=== PATIENT | male | born 1985 | race African-American/Black ===

== ENCOUNTER 2024-07-15 11:41 | Emergency (ER) | payer OTHER ==
[2024-07-15] MEDS ORDERED: LORazepam 2 MG/ML VIAL ONE (12:42)
[2024-07-15] MEDS ORDERED: NA CHLORIDE 0.9% 1,000 ML ONE (12:42)
[2024-07-15 12:46] LABS: Absolute Basophils 0.1 K/uL (0-0.5); Absolute Monocytes 0.5 K/uL (0.1-1.3); Absolute Neutrophil 9.1 K/uL (1.8-8.0); Basophils % 0.6 % (0-1.3); Hematocrit 39.6 % (39.6-49.0); Hemoglobin 13.5 g/dL (13.6-17.9); Lymphocytes % 9.1 % (15.3-44.8); MCH 30.4 pg (27.0-35.0); MCHC 34.1 g/dL (32.0-36.0); MCV 89.3 fL (80-100); MPV 7.1 fL (7.6-11.3); Monocytes % 4.6 % (3.3-12.3); Neutrophils % 85.7 % (41.7-73.7); Platelets 232 thou/uL (152-406); RBC Red Blood Cell Count 4.43 M/uL (4.33-5.43); Red Cell Distribution Width 14.1 % (12.1-15.2)
[2024-07-15 12:51] LABS: PT Prothrombin Time 12.9 SECONDS (9.4-12.5); Protime INR 1.16
[2024-07-15 13:05] LABS: ALT/SGPT 25 U/L (16-61); AST/SGOT 42 U/L (15-37); Albumin 3.9 g/dL (3.4-5.0); Albumin/Globulin Ratio 1.1 (1.1-1.8); Alkaline Phosphatase 64 U/L (45-117); Anion Gap 11.1 mEq/L (5.0-15.0); BUN Blood Urea Nitrogen 14 mg/dL (7-18); Bicarbonate 23 mEq/L (21-32); Bilirubin Direct 0.2 mg/dL (0-0.2); Bilirubin Indirect, Calculated 0.7 mg/dL (0.2-0.8); Bilirubin Total 0.9 mg/dL (0.2-1.0); Globulin 3.6 g/dL (2.3-3.5); Glomerular Filtration Rate 72 ml/min (=/>90); Glucose Level 86 mg/dL (74-106); Potassium 3.1 mEq/L (3.5-5.1); Protein, Total 7.5 g/dL (6.4-8.2); Sodium Level 139 mEq/L (136-145)
--- NOTE | 2024-07-15 13:55 | RAD REPORT ---
EXAM: Testicular/scrotal ultrasound HISTORY: indirect hernia right side/hydrocele COMPARISON: None TECHNIQUE: Multiplanar grayscale and color Doppler images were obtained in a testicular/scrotal ultra sound. Spectral analysis of the Doppler waveforms of the testicles were performed. FINDINGS: Right testicle: Normal in echogenicity. No focal mass. Normal internal flow. Left testicle: Normal in echogenicity. No focal mass. Normal internal flow. Right epididymis. No epididymal cyst. Normal internal flow. Left epididymis. No epididymal cyst. Normal internal flow. Large left-sided hydrocele is present. No varicocele is present. Right inguinal hernia. No bowel identified within the hernia. IMPRESSION: 1. Large left hydrocele. 2. Right-sided inguinal hernia. 3. Bilateral testicular blood flow.
[2024-07-15 14:16] LABS: Barbiturates NEGATIVE (NEGATIVE); Benzodiazepines NEGATIVE (NEGATIVE); Cocaine NEGATIVE (NEGATIVE); METHAMPHETAM POSITIVE (NEGATIVE); Methadone NEGATIVE (NEGATIVE); Opiates NEGATIVE (NEGATIVE); Phencyclidine NEGATIVE (NEGATIVE); THC Cannibis NEGATIVE (NEGATIVE)
--- NOTE | 2024-07-15 14:29 | EDPHYS ---
Physician Documentation [facility] Name: Daryl Cuello Age: 39 yrs Sex: Male : 1985 Arrival Date: 07/15/2024 Time: 11:41 Bed 4 Private MD: ISAIAH Physician Taras Pascal HPI: 07/15 13:27 This 39 yrs old Black Male presents to ER via Ambulatory with complaints of AMS, jr8 Testicular swelling. 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 He was brought in for possibility of increased swelling in his testicles. Has a history of hydrocele and indirect hernia on the right side. Also had concerned that patient was not acting appropriate. Has seen him in the past and normally is calm and lucid. Today speaking erratically and with odd behavior. Patient alert to person and place upon arrival. Denies any significant pain to the inguinal or testicular area but did say they are swollen. Patient appears to be diaphoretic and is talking sporadically. It is unknown whether or not the patient has had similar symptoms in the past. Historical: - Allergies: 12:18 No Known Allergies; me1 - PMHx: 12:18 hydrocele; me1 - Immunization history:: Adult Immunizations unknown. - Infectious Disease History:: Denies. - Social history:: Smoking status: Patient/guardian denies using tobacco, but has a distant history of tobacco abuse. ROS: 13:27 Cardiovascular: Negative for chest pain, palpitations, and edema, Respiratory: Negative jr8 for shortness of breath, cough, wheezing, and pleuritic chest pain, Abdomen/GI: Negative for abdominal pain, nausea, vomiting, diarrhea, and constipation, Back: Negative for injury and pain, MS/Extremity: Negative for injury and deformity, Skin: Negative for injury, rash, and discoloration, 13:27 : Positive for Testicular swelling, 13:27 Neuro: Positive for altered mental status, Exam: 13:27 Constitutional: This is a well developed, well nourished patient who is awake, alert. jr8 Rapid speaking and diaphoretic Eyes: Pupils equal round and reactive to light, extra-ocular motions intact. Lids and lashes normal. Conjunctiva and sclera are non-icteric and not injected. Cornea within normal limits. Periorbital areas with no swelling, redness, or edema. ENT: Nares patent. No nasal discharge, no septal abnormalities noted. Tympanic membranes are normal and external auditory canals are clear. Oropharynx with no redness, swelling, or masses, exudates, or evidence of obstruction, uvula midline. Mucous membranes moist. Cardiovascular: Regular rate and rhythm with a normal S1 and S2. No gallops, murmurs, or rubs. Normal PMI, no JVD. No pulse deficits. Respiratory: Lungs have equal breath sounds bilaterally, clear to auscultation and percussion. No rales, rhonchi or wheezes noted. No increased work of breathing, no retractions or nasal flaring. Abdomen/GI: Soft, non-tender, with normal bowel sounds. No distension or tympany. No guarding or rebound. No evidence of tenderness throughout. Skin: Warm, dry with normal turgor. Normal color with no rashes, no lesions, and no evidence of cellulitis. MS/ Extremity: Pulses equal, no cyanosis. Neurovascular intact. Full, normal range of motion. Neuro: Awake and alert, GCS 15, oriented to person, place, time, and situation. Motor strength 5/5 in all extremities. Sensory grossly intact. 13:27 : Male external genitalia: Patient is not circumisioned. Palpable indirect hernia to right side noted without significant tenderness. Large hydrocele present bilaterally, Vital Signs: 12:02 BP 136 / 91; Pulse 89; Resp 16; Pulse Ox 99% ; me1 12:14 BP 136 / 91; Pulse 93; Resp 20; Temp 98.3; Pulse Ox 99% ; Weight 65.77 kg; Height 5 ft. me1 5 in. ; 13:00 BP 140 / 93; Pulse 92; Resp 16; Pulse Ox 97% ; me1 14:00 BP 132 / 74; Pulse 79; Resp 16; Pulse Ox 100% ; me1 12:14 Body Mass Index 24.13 (65.77 kg, 165.1 cm) me1 MDM: 11:59 Medical Screening Exam initiated jr8 14:25 Differential Diagnosis altered mental status, PIETER, electrolyte dysfunction, drug abuse, jr8 hydrocele, varicocele, torsion, incarcerated hernia . Data reviewed: vital signs, nurses notes, lab test result(s), radiologic studies, ultrasound. Counseling: I had a detailed discussion with the patient and/or guardian regarding the historical points, exam findings, and any diagnostic results supporting the discharge/admit diagnosis, lab results, radiology results, the need for outpatient follow up, a urologist, to return to the emergency department if symptoms worsen or persist or if there are any questions or concerns that arise at home. Response to treatment: the patient's symptoms have markedly improved after treatment, patient is well hydrated. ED course: Patient hemodynamically stable and much less aggressive at this time after being medicated. Well-hydrated. Showed to have methamphetamine positive on his drug screen without any other significant abnormalities in his labs. As far as ultrasound has bilateral blood flow to both testicles with no bowel in the indirect hernia, no tenderness, unlikely that it is incarcerated or strangulated at this time. Left-sided hydrocele is present but there is no obstruction of blood flow. Can follow-up with [facility] system as he is an inmate for elective draining of the hydrocele.. 07/15 12:00 Order name: Acetaminophen; Complete Time: 13:08 [facility] 07/15 12:00 Order name: Basic Metabolic Panel; Complete Time: 13:08 [facility] 07/15 12:00 Order name: CBC with Diff; Complete Time: 14:39 [facility] 07/15 12:00 Order name: ETOH Level; Complete Time: 13:08 [facility] 07/15 12:00 Order name: Hepatic Function; Complete Time: 13:08 [facility] 07/15 12:00 Order name: PT-INR; Complete Time: 13:08 [facility] 07/15 12:00 Order name: Ptt, Activated; Complete Time: 13:08 [facility] 07/15 12:00 Order name: Salicylate; Complete Time: 13:42 [facility] 07/15 12:00 Order name: Urine Drug Screen; Complete Time: 14:24 [facility] 07/15 12:58 Order name: CBC Smear Scan; Complete Time: 14:39 [facility] 07/15 13:08 Order name: Scrotum Testicles US; Complete Time: 13:57 [facility] 07/15 12:00 Order name: EKG; Complete Time: 12:00 [facility] 07/15 12:00 Order name: EKG - Nurse/Tech; Complete Time: 14:39 [facility] 07/15 12:00 Order name: IV Saline Lock; Complete Time: 12:39 [facility] 07/15 12:00 Order name: Labs collected and sent; Complete Time: 12:39 jr8 07/15 12:00 Order name: Suicide Screening ([place]); Complete Time: 12:39 jr8 Administered Medications: 12:46 Drug: NS 0.9% IV 1000 ml IV at 1000 ml once; to be given as a bolus over 60 minutes me1 Route: IV; Rate: 1000 ml; Site: right antecubital; 14:38 Follow up: Response: No adverse reaction; IV Status: Completed infusion; IV Intake: me1 1000ml 12:46 Drug: Ativan IVP 2 mg IVP once Route: IVP; Site: right antecubital; me1 13:56 Follow up: Response: No adverse reaction; Anxiety decreased me1 14:38 Drug: Potassium Chloride PO 40 mEq PO once Route: PO; me1 14:38 Follow up: Response: No adverse reaction me1 Disposition Summary: 07/15/24 14:29 Discharge Ordered Notes: Location: Home [facility] Problem: new jr8 Symptoms: have improved jr Condition: Stable jr8 Diagnosis - Hydrocele, unspecified jr8 - Unilateral inguinal hernia, without obstruction or gangrene jr8 - Adverse effect of amphetamines jr8 Followup: jr8 - With: Private Physician - When: 2 - 3 days - Reason: Recheck today's complaints, Continuance of care, Re-evaluation by your physician Discharge Instructions: - Discharge Summary Sheet jr8 - Hydrocele, Adult jr8 Forms: - Medication Reconciliation Form jr8 - Antibiotic Education jr8 - Prescription Opioid Use jr8 - Patient Portal Instructions jr8 - Leadership Thank You Letter [facility] Signatures: Dispatcher [employer] EDPR Mikel Gardner PA PA 8 Adelina Chapin RN RN me1 Corrections: (The following items were deleted from the chart) 13:08 13:08 Scrotum Testicles+[id number] ordered. [facility] EDPR 13: 13:25 Onset: The symptoms/episode began/occurred acutely, today, 8 [facility] 13: 13:25 Associated signs and symptoms: Pertinent positives: myalgias, jr8 jr8 13: 13:25 Severity of symptoms: At their worst the symptoms were mild in the emergency [facility] department the symptoms are unchanged [facility] 13:25 The patient has not experienced similar symptoms in the past, jr8 jr8 : 13:25 The patient has not recently seen a physician, jr8 jr8 13:25 Patient stated that he had sudden onset subjective fever, body aches, chills that jr8 started earlier this morning around 9 AM. Denies any other symptoms at this time baseline history of COPD and anemia. No increasing cough or shortness of breath that he is aware of.. jr8 : 13:25 This 39 yrs old Black Male presents to ER via Ambulatory with complaints of jr8 Fever, body aches, chills. jr8 : 13:25 Constitutional: Positive for body aches, chills, malaise, jr8 jr8 : 13:25 ENT: Negative for injury, pain, and discharge, Neck: Negative for injury, pain, jr8 and swelling, Cardiovascular: Negative for chest pain, palpitations, and edema, Respiratory: Negative for shortness of breath, cough, wheezing, and pleuritic chest pain, Abdomen/GI: Negative for abdominal pain, nausea, vomiting, diarrhea, and constipation, Back: Negative for injury and pain, MS/Extremity: Negative for injury and deformity, Skin: Negative for injury, rash, and discoloration, Neuro: Negative for headache, weakness, numbness, tingling, and seizure, jr8 13:31 13:25 Constitutional: This is a well developed, well nourished patient who is awake, jr8 alert, and in no acute distress. Eyes: Pupils equal round and reactive to light, extra-ocular motions intact. Lids and lashes normal. Conjunctiva and sclera are non-icteric and not injected. Cornea within normal limits. Periorbital areas with no swelling, redness, or edema. ENT: Nares patent. No nasal discharge, no septal abnormalities noted. Tympanic membranes are normal and external auditory canals are clear. Oropharynx with no redness, swelling, or masses, exudates, or evidence of obstruction, uvula midline. Mucous membranes moist. Neck: Trachea midline, no thyromegaly or masses palpated, and no cervical lymphadenopathy. Supple, full range of motion without nuchal rigidity, or vertebral point tenderness. No Meningismus. Cardiovascular: Regular rate and rhythm with a normal S1 and S2. No gallops, murmurs, or rubs. Normal PMI, no JVD. No pulse deficits. Respiratory: Lungs have equal breath sounds bilaterally, clear to auscultation and percussion. No rales, rhonchi or wheezes noted. No increased work of breathing, no retractions or nasal flaring. Abdomen/GI: Soft, non-tender, with normal bowel sounds. No distension or tympany. No guarding or rebound. No evidence of tenderness throughout. Back: No spinal tenderness. No costovertebral tenderness. Full range of motion. Skin: Warm, dry with normal turgor. Normal color with no rashes, no lesions, and no evidence of cellulitis. MS/ Extremity: Pulses equal, no cyanosis. Neurovascular intact. Full, normal range of motion. Neuro: Awake and alert, GCS 15, oriented to person, place, time, and situation. Motor strength 5/5 in all extremities. Sensory grossly intact. jr8
--- NOTE | 2024-07-15 14:29 | ER ---
Nurse's Notes [facility] Name: Daryl Cuello Age: 39 yrs Sex: Male : 1985 Arrival Date: 07/15/2024 Time: 11:41 Bed 4 Private MD: Diagnosis: Hydrocele, unspecified;Unilateral inguinal hernia, without obstruction or gangrene;Adverse effect of amphetamines Presentation: 07/15 12:14 Chief complaint: Patient states: swollen testicles, hx "hydrocele that turned into a me1 hernia". Patient is A\\T\\Ox4 but appears altered. Rambling on about "they think Im on drugs and Im losing my mind". Coronavirus screen: Vaccine status: Patient reports receiving the 2nd dose of the covid vaccine. Ebola Screen: No symptoms or risks identified at this time. Initial Sepsis Screen: Does the patient meet any 2 criteria? HR > 90 bpm. Risk Assessment: Do you want to hurt yourself or someone else? Patient reports no desire to harm self or others. Onset of symptoms is unknown. 12:14 Method Of Arrival: [place] [facility] [place] 12:14 Acuity: RACHAEL 3 [facility] [place] 14:47 Initial Sepsis Screen: Does the patient have a suspected source of infection? No. me1 Patient's initial sepsis screen is negative. Triage Assessment: 12:18 General: Appears distressed, well developed, well nourished, Behavior is appropriate mi1 for age, anxious, restless. Pain: Unable to use pain scale. Does not appear to understand pain scale. Pain: Unable to use pain scale. When asked if he is in pain patient just starts talking about his hydrocele and wont give a number on the pain scale. EENT: No signs and/or symptoms were reported regarding the EENT system. Neuro: Level of Consciousness is awake, alert, confused, Oriented to person, place, time, situation. Cardiovascular: Patient's skin is warm and dry. Respiratory: Airway is patent Respiratory effort is even, unlabored, Respiratory pattern is regular, symmetrical. GI: No signs and/or symptoms were reported involving the gastrointestinal system. : No signs and/or symptoms were reported regarding the genitourinary system. Derm: Skin is healthy with good turgor, Skin is diaphoretic, Skin is normal, Skin temperature is warm. Musculoskeletal: No signs and/or symptoms reported regarding the musculoskeletal system. Historical: - Allergies: 12:18 No Known Allergies; me1 - PMHx: 12:18 hydrocele; me1 - Immunization history:: Adult Immunizations unknown. - Infectious Disease History:: Denies. - Social history:: Smoking status: Patient/guardian denies using tobacco, but has a distant history of tobacco abuse. Screenin:22 [facility] ED Fall Risk Assessment (Adult) History of falling in the last 3 months, me1 including since admission No falls in past 3 months (0 pts) Confusion or Disorientation Yes (5 pts) Intoxicated or Sedated No (0 pts) Impaired Gait No (0 pts) Mobility Assist Device Used No (0 pt) Altered Elimination No (0 pt) Score/Fall Risk Level 0 - 2 = Low Risk Maintained a safe environment, Provided non-skid footwear, Hourly rounding (assess needs \\T\\ fall precautionary measures) done. Abuse screen: Denies threats or abuse. Nutritional screening: No deficits noted. Tuberculosis screening: No symptoms or risk factors identified. Assessment: 12:22 General: See triage assessment . me1 Vital Signs: 12:02 BP 136 / 91; Pulse 89; Resp 16; Pulse Ox 99% ; me1 12:14 BP 136 / 91; Pulse 93; Resp 20; Temp 98.3; Pulse Ox 99% ; Weight 65.77 kg; Height 5 ft. me1 5 in. ; 13:00 BP 140 / 93; Pulse 92; Resp 16; Pulse Ox 97% ; me1 14:00 BP 132 / 74; Pulse 79; Resp 16; Pulse Ox 100% ; me1 12:14 Body Mass Index 24.13 (65.77 kg, 165.1 cm) me1 ED Course: 11:44 Patient arrived in ED. iw 11:58 Mikel Gardner PA is PHCP. jr8 11:59 Taras Pascal MD is Attending Physician. jr8 12:04 Adelina Chapin, WAN is Primary Nurse. me1 12:18 Triage completed. me1 12:18 Arm band placed on Patient placed in an exam room. me1 12:22 Patient has correct armband on for positive identification. Bed in low position. Call me1 light in reach. Side rails up X2. Provided Education on: POC. Verbalized understanding. . Client placed on continuous cardiac and pulse oximetry monitoring. NIBP monitoring applied. Pulse ox on. NIBP on. 12:22 No provider procedures requiring assistance completed. me1 12:38 Initial lab(s) drawn, by me, sent to lab. Inserted saline lock: 20 gauge in right me1 antecubital area, using aseptic technique. 12:39 Acetaminophen Sent. me1 12:39 Basic Metabolic Panel Sent. me1 12:39 CBC with Diff Sent. me1 12:39 ETOH Level Sent. me1 12:39 Hepatic Function Sent. me1 12:39 PT-INR Sent. me1 12:39 Ptt, Activated Sent. me1 13:49 Scrotum Testicles US In Process Unspecified. EDMS 13:56 Urine Drug Screen Sent. me1 13:56 Urine collected: clean catch specimen, izabella colored. me1 14:46 IV discontinued, intact, bleeding controlled, No redness/swelling at site. Pressure me1 dressing applied. Administered Medications: 12:46 Drug: NS 0.9% IV 1000 ml IV at 1000 ml once; to be given as a bolus over 60 minutes me1 Route: IV; Rate: 1000 ml; Site: right antecubital; 14:38 Follow up: Response: No adverse reaction; IV Status: Completed infusion; IV Intake: me1 1000ml 12:46 Drug: Ativan IVP 2 mg IVP once Route: IVP; Site: right antecubital; me1 13:56 Follow up: Response: No adverse reaction; Anxiety decreased me1 14:38 Drug: Potassium Chloride PO 40 mEq PO once Route: PO; me1 14:38 Follow up: Response: No adverse reaction me1 Medication: 12:22 VIS not applicable for this client. me1 Intake: 14:38 IV: 1000ml; Total: 1000ml. me1 Outcome: 14:29 Discharge ordered by MD. mendez 14:46 Discharged to Law Enforcement me1 14:46 Condition: stable 14:46 Discharge instructions given to patient, guards Instructed on discharge instructions, follow up and referral plans. Demonstrated understanding of instructions, follow-up care, 14:51 Patient left the ED. me1 Signatures: Dispatcher [employer] Alice Person RN RN iw Roszak, Josh, PA PA jr8 Eddleman, Michelle, RN RN me1
[2024-07-15 14:32] LABS: Platelet Estimate ADEQ; White Blood Cell Scan OK (OK)
[2024-07-15 14:33] LABS: Anisocytosis 1+; Blood Morphology Comment NOTED (NOT SEEN); Poikilocytosis 1+
[2024-07-15] MEDS ORDERED: POTASSIUM CL SA 10 MEQ TAB PO ONE (14:33)
[2024-07-15 15:37] VITALS: TEMP 98.3
[2024-07-15 15:44] VITALS: BP 132/74; O2SAT 100
== END 2024-07-15 14:51 | disposition home or self-care (01) ==
LOC: ER 11:41
DX: N43.3 Hydrocele, unspecified (principal); K40.90 Unilateral inguinal hernia, without obstruction or gangrene, not specified as recurrent; T43.625A Adverse effect of amphetamines, initial encounter
CPT/HCPCS: 36415; 76870; 80048; 80076; 80143; 80179; 80307; 82077; 85025; 85610; 85730; 96361; 96374; 99284; J7030